=== PATIENT | female | born 1980 | race Caucasian/White ===

== ENCOUNTER → 2020-12-24 | Outpatient (CLI) | payer BC, OTHER ==
[2020-12-29 00:11] LABS: TANDEM-R OSTASE 18.3 ug/L (.)
== END ==
LOC: LAB 11:19
PROVIDERS: Internal Medicine
DX: R74.8 Abnormal levels of other serum enzymes (principal); R70.0 Elevated erythrocyte sedimentation rate; M25.50 Pain in unspecified joint; D89.89 Other specified disorders involving the immune mechanism, not elsewhere classified; R76.0 Raised antibody titer
CPT/HCPCS: 36415; 82977; 84080